=== PATIENT | male | born 1980 | race Caucasian/White ===

== ENCOUNTER 2023-10-20 16:15 | Observation (INO) | payer OTHER ==
--- NOTE | 2023-10-20 16:37 | ED ---
Chest Pain HPI - General Source: patient, RN notes reviewed <Mariia Rivers - Last Filed: 10/20/23 16:36> - General Source: patient, RN notes reviewed, old records reviewed <Adonis Ayala - Last Filed: 10/20/23 19:31> - General Chief Complaint: Chest Pain Stated Complaint: SOB, Chest Discomfort Time Seen by Provider: 10/20/23 16:36 - History of Present Illness Initial Comments: Patient is a 43-year-old male presented to ER with chief complaint of chest pain. Patient is a resident at [place]. Patient states he was sitting listening to a speaker when he started to have chest pain which radiated into his cheek and left arm. Denies any known cardiac history. Pain has now since resolved. (Mariia Rivers) Patient is a 43-year-old male sent from [place] for chest pain. Is here for alcohol abuse. Last drink was last week. Has a history of anxiety and tho ught that maybe this was the cause of his chest pain however he states it was different as he states that was left-sided with radiation into the left cheek and left arm. Resolved prior to arrival. Has no current pain. Lasted may be 5 to 15 minutes. Unknown for sure. Denies any shortness of breath. Denies any diaphoresis or nausea. Denies any other acute complaints. No cardiac history. No history of cocaine abuse. Presents for further evaluation at this time. Originally seen as a quick note. I evaluated him when he was placed in a hallway bed. (Adonis Ayala) - Related Data Allergies Allergy/AdvReac Type Severity Reaction Status Date / Time No Known Allergies Allergy Verified 10/20/23 16:41 Review of Systems ROS Other: All systems not noted in ROS Statement are negative. <Mariia Rivers - Last Filed: 10/20/23 16:36> ROS Other: All systems not noted in ROS Statement are negative. <Adonis Ayala - Last Filed: 10/20/23 19:31> ROS Statement: Those systems with pertinent positive or pertinent negative responses have been documented in the HPI. Review of Systems: CONST: Denies fever EYES: Denies blurry vision ENT: Denies nasal congestion C/V: Endorses no current chest pain RESP: Denies shortness of breath GI: Denies abdominal pain : Denies dysuria SKIN: Denies rash. MSK: Denies joint pain. NEURO: Denies headache (Adonis Ayala) EKG Findings - EKG Comments: EKG Findings:: 12-lead Electrocardiogram Interpretation Note. EKG was reviewed and interpreted by myself. 12-lead ECG performed at 1645 is interpreted by me as revealing normal sinus rhythm at a rate of 64 beats per minute. [place] is normal. AR interval 125 ms, QRS duration is 114 ms, QTc is 454 ms.. There were no ST or T wave abnormalities to suggest myocardial ischemia or injury. R wave progression across the precordium was satisfactory. By my interpretation this EKG is non-diagnostic for acute ischemia. - EKG Results: EKG: interpreted by ERMD <Adonis Ayala - Last Filed: 10/20/23 19:31> General Exam <Mariia Rivers - Last Filed: 10/20/23 16:36> <Adonis Ayala - Last Filed: 10/20/23 19:31> - General Exam Comments Initial Comments: Visual Physical Exam Vital signs reviewed General: Well-appearing, nontoxic, no acute distress. Head: Normocephalic, atraumatic Eyes: PERRLA, EOMI ENT: Airway patent Chest: Nonlabored breathing Skin: No visual rash, normal skin tone Neuro: Alert and oriented 3 Musculoskeletal: No gross abnormalities (Mariia Rivers) General: Appears in no acute distress. HEAD: Normal with no signs of head trauma. EYES: PERRLA, EOMI, conjunctiva normal, no discharge. ENT: Hearing grossly intact, normal oropharynx. RESPIRATORY: Clear breath sounds bilaterally. No wheezes, rales, or rhonchi. C/V: Regular rate and rhythm. S1 and S2 auscultated, no edema, peripheral pulses 2+ and intact throughout ABD: Abd is soft, nontender, nondistended EXT: Normal range of motion, no obvious deformity SKIN: No rashes or lesions observed on exposed skin. NEURO: Alert and oriented x 4. (Adonis Ayala) Course Vital Signs 10/20/23 10/20/23 16:36 18:49 Temperature 98.1 F Pulse Rate 86 64 Respiratory 20 18 Rate Blood Pressure 109/78 131/86 O2 Sat by Pulse 100 96 Oximetry Chest Pain MDM <Mariia Rivers - Last Filed: 10/20/23 16:36> <Adonis Ayala - Last Filed: 10/20/23 19:31> - [facility] I performed the quick note portion of this chart. Electronically signed by Mariia Rivers PA-C (Mariia Rivers) Was pt. sent in by a medical professional or institution (DAVID Kathleen, SPRAY APPLICATOR, urgent care, hospital, or jail...) When possible be specific @ -No Did you speak to anyone other than the patient for history (EMS, parent, family, police, friend...)? What history was obtained from this source @ -No Did you review nursing and triage notes (agree or disagree)? Why? @ -I reviewed and agree with nursing and triage notes Were old charts reviewed (outside hosp., previous admission, EMS record, old EKG, old radiological studies, urgent care reports/EKG's, jail records)? Report findings @ -No old charts were reviewed Differential Diagnosis (chest pain, altered mental status, abdominal pain women, abdominal pain men, vaginal bleeding, weakness, fever, dyspnea, syncope, headache, dizziness, GI bleed, back pain, seizure, CVA, palpatations, mental health, musculoskeletal)? @ -Differential Chest Pain: Stable Angina, Unstable Angina, STEMI, NSTEMI Aortic Dissection, Pneumothorax, Musculoskeletal, Esophageal Spasm GERD, Cholecystitis, Pancreatitis, Zoster, this is not meant to be an all-inclusive list. EKG interpreted by me (3pts min.). @ -As above X-rays interpreted by me (1pt min.). @ -Chest x-ray reveals no obvious acute cardiopulmonary process CT interpreted by me (1pt min.). @ -None done U/S interpreted by me (1pt. min.). @ -None done What testing was considered but not performed or refused? (CT, X-rays, U/S, labs)? Why? @ -None What meds were considered but not given or refused? Why? @ -None Did you discuss the management of the patient with other professionals (professionals i.e. DAVID Kathleen, SPRAY APPLICATOR, lab, RT, psych nurse, psychologist social, resolution agent, teacher, community service patrol officer, onsite case manager)? Give summary @ -I spoke with Dr. Conroy who accepted the admission. Was smoking cessation discussed for >3mins.? @ -No Was critical care preformed (if so, how long)? @ -No Were there social determinants of health that impacted care today? How? (Homelessness, low income, unemployed, alcoholism, drug addiction, transportation, low edu. Level, literacy, decrease access to med. care, shelter, rehab)? @ -No Was there de-escalation of care discussed even if they declined (Discuss DNR or withdrawal of care, Hospice)? DNR status @ -No What co-morbidities impacted this encounter? (DM, HTN, Smoking, COPD, CAD, Cancer, CVA, ARF, Chemo, Hep., AIDS, mental health diagnosis, sleep apnea, morbid obesity)? @ -None Was patient admitted / discharged? Hospital course, mention meds given and route, prescriptions, significant lab abnormalities, going to OR and other pertinent info. @ -Based on the patient's presentation and physical exam, presents with somewhat typical sounding chest pain that resolved prior to arrival. Has no other acute complaints at this time. Does have a family history of cardiac disease. Vital signs are within acceptable limits. EKG shows no signs of acute ischemia. Chest x-ray unremarkable. Labs remarkable for an undetectable troponin. I discussed results with the patient. I did offer him observation admission and he accepted. Patient will be admitted to observation at this time. Cardiology consulted. I spoke with Dr. Conroy of [facility] who accepted the admission. Patient's heart score is moderate at 4. Patient was in agreement this plan. Undiagnosed new problem with uncertain prognosis? @ -No Drug Therapy requiring intensive monitoring for toxicity (Heparin, Nitro, Insulin, Cardizem)? @ -No Were any procedures done? @ -No Diagnosis/symptom? @ -Chest pain Acute, or Chronic, or Acute on Chronic? @ -Acute Uncomplicated (without systemic symptoms) or Complicated (systemic symptoms)? @ -Complicated Side effects of treatment? @ -No Exacerbation, Progression, or Severe Exacerbation? @ -No Poses a threat to life or bodily function? How? (Chest pain, [place], [place], pneumonia, PE, COPD, DKA, ARF, appy, cholecystitis, CVA, Diverticulitis, Homicidal, Suicidal, threat to staff... and all critical care pts) @ -Yes (Adonis Ayala) Disposition <Mariia Rivers - Last Filed: 10/20/23 16:36> Time of Disposition: 18:28 <Adonis Ayala - Last Filed: 10/20/23 19:31> Clinical Impression: Chest pain Disposition: ADMITTED IP TO THIS HOSP Condition: Stable Referrals: None,Stated [Primary Care Provider] - 1-2 days
[2023-10-20 17:07] LABS: HCT 47.4 % (39.0-53.0); HGB 16.2 gm/dL (13.0-17.5); INR 0.9 (<1.2); MCH 33.3 pg (25.0-35.0); MCHC 34.3 g/dL (31.0-37.0); MCV 97.2 fL (80.0-100.0); Mean Platelet Volume 7.3; Partial Thromboplastin Time 23.2 sec (22.0-30.0); Platelet Count 244 k/uL (150-450); Prothrombin Time 10.2 sec (10.0-12.5); RBC 4.88 m/uL (4.30-5.90); RDW 12.6 % (11.5-15.5); WBC 5.7 k/uL (3.8-10.6)
[2023-10-20 17:15] LABS: ALT 49 U/L (4-49); AST 41 U/L (17-59); African American GFR (CKD) >90 (>60 ml/min/1.73 sqM); Alkaline Phosphatase 59 U/L (38-126); Anion Gap 3 mmol/L; Blood Urea Nitrogen 16 mg/dL (9-20); Carbon Dioxide 28 mmol/L (22-30); Chloride 109 mmol/L (98-107); Glucose 97 mg/dL (74-99); Non-African American GFR(CKD) >90 (>60 ml/min/1.73 sqM); Potassium 4.1 mmol/L (3.5-5.1); Sodium 140 mmol/L (137-145); Total Bilirubin 0.5 mg/dL (0.2-1.3); Total Protein 7.1 g/dL (6.3-8.2)
--- NOTE | 2023-10-20 17:44 | XR ---
EXAMINATION TYPE: XR chest 2V DATE OF EXAM: 10/20/2023 5:14 PM CLINICAL INDICATION:Male, 43 years old with history of chest pain; COMPARISON: Chest radiographs from 10/20/2023. TECHNIQUE: XR chest 2V Frontal and lateral views of the chest. FINDINGS: Lungs/Pleura: There is no evidence of pleural effusion, focal consolidation, or pneumothorax. Pulmonary vascularity: Unremarkable. Heart/mediastinum: Cardiomediastinal silhouette is unremarkable. Musculoskeletal: No acute osseous pathology. IMPRESSION: No acute cardiopulmonary disease/process.
[2023-10-20] MEDS ORDERED: ONDANSETRON 4 MG/2 ML VIAL IVP PRN (18:28)
[2023-10-20] MEDS ORDERED: NALOXONE 0.4 MG/ML 1 ML VIAL IV PRN (18:28)
[2023-10-20] MEDS: ASPIRIN 81 MG PO STA (18:50)
[2023-10-20 21:24] VITALS: RESP 16
[2023-10-20] MEDS: HEPARIN SODIUM,PORCINE 5,000 UNIT/ML 1 ML VIAL SQ SCH (22:35)
[2023-10-21] MEDS ORDERED: ALBUTEROL NEBULIZED 2.5 MG/3 ML INHALATION PRN (04:30)
--- NOTE | 2023-10-21 04:36 | P.HPIM ---
History of Present Illness H&P Date: 10/20/23 Chief Complaint: Chest pain 43-year-old male with anxiety and alcohol abuse Patient coming in from [place] due to an episode of chest pain he describes sudden onset across his chest chest heaviness rated 8 out of 10 in severity radiating to the left arm and to his jaw lasted about 20 seconds he was doing nothing when it happened not precipitated by any activity reports that it was associated with heavy breathing some profuse sweating and dizziness denies any nausea vomiting or palpitations he reports that he had experienced something similar years and years ago where he had a stress test done that was positive he was supposed to do further testing but then he was lost to follow-up. He denies any recent illnesses respiratory illness denies any nausea vomiting denies any coughing denies any fevers or chills denies any changes in bowel or urinary habits denies any abdominal pain Patient does admit to alcohol abuse his last drink was over a week ago he has been at [place] for rehab He does admit to history of anxiety but claims to be very calm at this time He does admit to heavy smoking denies any illicit drugs. He also admits to heavy alcohol dependence Denies any recent travel or hospital stay denies any history of blood clots review of systems Pertinent positives as noted in HPI. All other systems were reviewed and are negative on exam Constitutional: No acute distress, conversant, pleasant Eyes: Anicteric sclerae, moist conjunctiva, Pupils equal round reactive to light ENMT: NC/AT Oropharynx clear, no erythema, or exudates Neck: Supple, no masses, or JVD No carotid bruits No thyromegaly Lungs: Clear to auscultation Clear to percussion Normal respiratory effort, no accessory muscle use Cardiovascular: Heart regular in rate and rhythm, No murmurs, gallops, or rubs No peripheral edema Abdominal: Soft Nontender, no guarding, rebound or rigidity Abdomen moving with respiration Normoactive bowel sounds No hepatomegaly, No splenomegaly Extremities: No digital cyanosis No clubbing Pedal pulses intact and symmetrical Radial pulses intact and symmetrical No calf tenderness Psychiatric: Alert and oriented to person, place and time Appropriate affect fair judgement Neuro Muscles Strength 5/5 in all 4 extremities Sensation to light touch grossly present throughout Cranial nerves II-XII grossly intact Lymphatics: no palpable cervical or supraclavicular lymph nodes Past Medical History Past Medical History: No Reported History History of Any Multi-Drug Resistant Organisms: None Reported Past Psychological History: No Psychological Hx Reported Smoking Status: Current some day smoker Past Alcohol Use History: Abuse Past Drug Use History: None Reported Medications and Allergies Home Medications Medication Instructions Recorded Confirmed Type ARIPiprazole [Abilify] 10 mg PO DAILY 10/20/23 10/20/23 History Albuterol Inhaler [Ventolin Hfa 2 puff INHALATION RT-QID PRN 10/20/23 10/20/23 History Inhaler] Aspirin EC [Ecotrin] 650 mg PO Q4H PRN 10/20/23 10/20/23 History Calcium Phos/D3/Magnesium/Zinc 1 tab PO TID PRN 10/20/23 10/20/23 History [Lwbmonm-Hot-Qrdh-Vitamin D3] Cetirizine HCl [Zyrtec] 10 mg PO DAILY PRN 10/20/23 10/20/23 History FLUoxetine HCL 40 mg PO DAILY 10/20/23 10/20/23 History Thiamine [Vitamin B-1] 100 mg PO DAILY 10/20/23 10/20/23 History busPIRone HCL [Buspar] 30 mg PO BID 10/20/23 10/20/23 History Allergies Allergy/AdvReac Type Severity Reaction Status Date / Time No Known Allergies Allergy Verified 10/20/23 19:32 Physical Exam Vitals: Vital Signs Temp Pulse Pulse Resp BP BP Pulse Ox 10/20/23 21:52 97.5 F L 66 16 112/70 96 10/20/23 21:01 84 16 123/81 95 10/20/23 18:49 64 18 131/86 96 10/20/23 16:36 98.1 F 86 20 109/78 100 Intake and Output 10/20/23 10/20/23 10/20/23 06:59 14:59 22:59 Other: Weight 102.058 kg Results CBC & Chem 7: 10/20/23 16:43 10/20/23 16:43 Labs: Abnormal Lab Results - Last 24 Hours (Table) 10/20/23 Range/Units 16:43 Chloride 109 H (98-107) mmol/L Thrombosis Risk Factor Assmnt - Choose All That Apply Each Factor Represents 1 point: Age 41-60 years, Obesity (BMI >25) Thrombosis Risk Factor Assessment Total Risk Factor Score: 2 Thrombosis Risk Factor Assessment Level: Low Risk Assessment and Plan Assessment: 43-year-old male with anxiety alcohol abuse coming from [place] re[facility] for sudden onset chest pain that lasted 20 seconds radiating to his jaw and left arm I discussed case with ED doctor and accepted the admission for atypical chest pain to rule out acute coronary syndrome with anticipated length of stay less than 2 midnights Atypical chest pain Rule out acute coronary syndrome Troponins negative continue to trend Cardiac monitoring Monitor vital signs Continue with aspirin p.o. 81 mg daily Check lipid panel in the morning Cardiology consult EKG is normal sinus rhythm no acute ST changes Gentle IV fluid hydration normal saline 75 cc/h Alcohol abuse patient quit over a week ago Discharge back [place] re[facility] was cleared by cardiology Thiamine p.o. daily Monitor for alcohol withdrawal Anxiety Continue with Prozac and BuSpar Continue with Abilify these are all home medications Full code DVT prophylaxis heparin subcu 3 times daily Blood work overall unremarkable white count 8.7 hemoglobin 16 Sodium 140 potassium 4.1 BUN 16 creatinine 0.7 unremarkable Chest x-ray showed no acute cardiopulmonary process
[2023-10-21] MEDS: SODIUM CHLORIDE 0.9% 1,000 ML IV SCH (05:18)
[2023-10-21 07:57] VITALS: BP 118/75; PULSE 70; TEMP 97.8
[2023-10-21 09:59] LABS: Basophils # (A) 0.03 X 10*3/uL (0.00-0.10); Basophils % (A) 0.6 %; Eosinophils # (A) 0.23 X 10*3/uL (0.04-0.35); Eosinophils % (A) 4.9 %; HCT 46.6 % (39.6-50.0); HGB 15.7 g/dL (13.0-17.0); Lymphocytes # (A) 1.91 X 10*3/uL (0.90-5.00); Lymphocytes % (A) 40.8 %; MCH 32.2 pg (27.0-32.0); MCHC 33.7 g/dL (32.0-37.0); MCV 95.5 FL (80.0-97.0); Mean Platelet Volume 9.5 FL (9.5-12.2); Monocytes # (A) 0.35 X 10*3/uL (0.20-1.00); Monocytes % (A) 7.5 %; NRBC Per 100 WBC 0 X 10*3/uL (0.00-0.01); Neutrophils # (A) 2.15 X 10*3/uL (1.80-7.70); Platelet Count 253 X 10*3/uL (140-440); RBC 4.88 X 10*6/uL (4.40-5.60); RDW 12.7 % (11.5-14.5); WBC 4.68 X 10*3/uL (4.50-10.00)
[2023-10-21 10:25] LABS: Blood Urea Nitrogen 11.6 mg/dL (9.0-27.0); Calcium 8.7 mg/dL (8.7-10.3); Carbon Dioxide 24.5 mmol/L (21.6-31.8); Chloride 109 mmol/L (96-109); Chol/HDL Ratio 3.23 Ratio; Glucose 92 mg/dL (70-110); LDL Cholesterol,Calculated 90.8 mg/dL (0.0-131.0); Potassium 4.4 mmol/L (3.5-5.5); Sodium 144 mmol/L (135-145)
[2023-10-21] MEDS: THIAMINE 100 MG TAB PO SCH (11:18)
[2023-10-21] MEDS: ASPIRIN 81 MG PO SCH (11:18)
[2023-10-21] MEDS: ARIPiprazole 10 MG TAB PO SCH (11:18)
[2023-10-21] MEDS: busPIRone HCl 10 MG TAB PO SCH (11:18)
[2023-10-21] MEDS: FLUoxetine HCL 20 MG CAP PO SCH (11:18)
--- NOTE | 2023-10-21 11:50 | P.DS ---
Providers Date of admission: 10/20/23 18:31 Expected date of discharge: 10/21/23 Attending physician: Faisal Conroy MD Consults: 10/20/23 18:28 Consult Physician Routine Consulting Provider: [facility] Consult Reason/Comments: chest pain Do you want consulting provider notified?: Yes Primary care physician: Stated None Hospital Course: Discharge Diagnosis: Chest pain, ACS ruled out Alcohol dependence Anxiety/depression Hospital Course: 43-year-old male with history of alcohol dependence, depression/anxiety presenting with chest pain. Patient is coming from [place]. Vital signs have been within normal limits. Laboratory workup unremarkable. Troponin negative x 3. Cardiology assessed patient. EKG showed normal sinus rhythm. Chest x-ray no acute process. D-dimer negative. Patient being discharged back to [facility]. Patient asymptomatic at the time of discharge. Patient seen and examined at bedside. Vital signs reviewed and stable. General: Nontoxic, no distress, appears at stated age Derm: Warm, dry Head: Atraumatic, normocephalic, symmetric Eyes: EOMI, no lid lag, anicteric sclera Mouth: No lip lesion, mucus membranes moist Cardiovascular: S1S2 reg, no murmur Lungs: CTA bilateral, no rhonchi, no rales, no accessory muscle use Abdominal: Soft, nontender to palpation, no guarding, no appreciable organomegaly Ext: No gross muscle atrophy, no edema, no contractures Neuro: CN II-XI grossly intact, no focal neuro deficits Psych: Alert, oriented, appropriate affect A total of 33 minutes of time were spent preparing this complex discharge summary. Patient was discharged on 10/21/23 at 1130. Patient Condition at Discharge: Stable Plan - Discharge Summary New Discharge Prescriptions: Continue Calcium Phos/D3/Magnesium/Zinc [Xdsrxin-Zug-Pmew-Vitamin D3] 1 tab PO TID PRN PRN Reason: CRAMPS Albuterol Inhaler [Ventolin Hfa Inhaler] 2 puff INHALATION RT-QID PRN PRN Reason: Shortness Of Breath Cetirizine HCl [Zyrtec] 10 mg PO DAILY PRN PRN Reason: Allergy Symptoms Thiamine [Vitamin B-1] 100 mg PO DAILY Aspirin EC [Ecotrin] 650 mg PO Q4H PRN PRN Reason: Pain busPIRone HCL [Buspar] 30 mg PO BID FLUoxetine HCL 40 mg PO DAILY ARIPiprazole [Abilify] 10 mg PO DAILY Discharge Medication List ARIPiprazole [Abilify] 10 mg PO DAILY 10/20/23 [History] Albuterol Inhaler [Ventolin Hfa Inhaler] 2 puff INHALATION RT-QID PRN 10/20/23 [History] Aspirin EC [Ecotrin] 650 mg PO Q4H PRN 10/20/23 [History] Calcium Phos/D3/Magnesium/Zinc [Tnfzvkd-Npj-Zbni-Vitamin D3] 1 tab PO TID PRN 10/20/23 [History] Cetirizine HCl [Zyrtec] 10 mg PO DAILY PRN 10/20/23 [History] FLUoxetine HCL 40 mg PO DAILY 10/20/23 [History] Thiamine [Vitamin B-1] 100 mg PO DAILY 10/20/23 [History] busPIRone HCL [Buspar] 30 mg PO BID 10/20/23 [History] Follow up Appointment(s)/Referral(s): None,Stated [Primary Care Provider] - 1-2 days Patient Instructions/Handouts: Noncardiac Chest Pain (DC), Alcohol Dependence (ED) Activity/Diet/Wound Care/Special Instructions: Please see PCP. Discharge Disposition: OTHER INSTITUTION NOT DEFINED
--- NOTE | 2023-10-21 15:23 | P.CRDCN ---
History of Present Illness Consult date: 10/21/23 Consult reason: chest pain History of present illness: The patient is a 43-year-old male who is currently admitted for intermittent chest pains. The patient is currently undergoing EtOH withdrawal at [facility]. The patient was sitting in an evening meeting when he developed chest discomfort that was sharp in nature radiating to his left jaw and left arm. DIAGNOSTICS: EKG shows sinus mechanism without ST or T wave abnormalities Chest x-ray shows no acute cardiopulmonary process Lab data: WBC 4.6, hemoglobin 15.7, Addison crit 46.6, platelet 253, D-dimer 0.55, sodium 144, potassium 4.4, BUN 11, creatinine 0.8, troponins negative x 3, AST 41, ALT 49, triglycerides 71, LDL 90, HDL 47 REVIEW OF SYSTEMS: No fever or chills. No cough or expectoration. No diaphoresis. Patient denies headache, dizziness, blurred vision, double vision. Patient denies any stomach discomfort. No nausea, vomiting. No hematochezia. No hematemesis. Denies any black stools or blood in his stools. Denies dysuria or hematuria. No muscle weakness or numbness. PHYSICAL EXAMINATION: This is a 43-year-old male in no apparent distress at the time of my examination. HEENT: Head is atraumatic, normocephalic. Pupils are equal, round. Sclerae anicteric. Conjunctivae are clear. Mucous membranes of the mouth are moist. Neck is supple. There is no jugular venous distention. No carotid bruit is heard. CHEST EXAMINATION: Lungs are clear to auscultation. No chest wall tenderness is noted on palpation or with deep breathing. HEART EXAMINATION: Heart regular rate and rhythm. S1, S2 heard. No murmurs, gallops or rub. ABDOMEN: Soft, nontender. Bowel sounds are heard. No organomegaly noted. EXTREMITIES: 2+ peripheral pulses with no evidence of peripheral edema and no calf tenderness noted. NEUROLOGIC EXAMINATION: Patient is awake, alert and oriented x3. FINAL ASSESSMENT AND PLAN: Chest discomfort EtOH withdrawal Anxiety disorder PLAN: Patient may be discharged back to [place] [facility] Outpatient follow-up I am dictating on behalf of Dr David Garduno's history/physical and assessment/plan. Past Medical History Past Medical History: No Reported History History of Any Multi-Drug Resistant Organisms: None Reported Past Psychological History: No Psychological Hx Reported Smoking Status: Current some day smoker Past Alcohol Use History: Abuse Past Drug Use History: None Reported Medications and Allergies Home Medications Medication Instructions Recorded Confirmed Type ARIPiprazole [Abilify] 10 mg PO DAILY 10/20/23 10/20/23 History Albuterol Inhaler [Ventolin Hfa 2 puff INHALATION RT-QID PRN 10/20/23 10/20/23 History Inhaler] Aspirin EC [Ecotrin] 650 mg PO Q4H PRN 10/20/23 10/20/23 History Calcium Phos/D3/Magnesium/Zinc 1 tab PO TID PRN 10/20/23 10/20/23 History [Ekouxuz-Bmb-Ulrj-Vitamin D3] Cetirizine HCl [Zyrtec] 10 mg PO DAILY PRN 10/20/23 10/20/23 History FLUoxetine HCL 40 mg PO DAILY 10/20/23 10/20/23 History Thiamine [Vitamin B-1] 100 mg PO DAILY 10/20/23 10/20/23 History busPIRone HCL [Buspar] 30 mg PO BID 10/20/23 10/20/23 History Allergies Allergy/AdvReac Type Severity Reaction Status Date / Time No Known Allergies Allergy Verified 10/20/23 19:32 Physical Exam Vitals: Vital Signs Temp Pulse Pulse Resp BP BP Pulse Ox 10/21/23 07:15 97.8 F 70 16 118/75 98 10/21/23 02:07 97.7 F 62 16 118/69 96 10/20/23 21:52 97.5 F L 66 16 112/70 96 10/20/23 21:01 84 16 123/81 95 10/20/23 18:49 64 18 131/86 96 10/20/23 16:36 98.1 F 86 20 109/78 100 Intake and Output 10/21/23 10/21/23 10/21/23 06:59 14:59 22:59 Intake Total 250 Balance 250 Intake: Oral 250 Other: # Voids 1 Results 10/21/23 05:51 10/21/23 05:51 Cardiac Enzymes 10/20/23 10/20/23 10/20/23 Range/Units 16:43 16:43 20:48 AST 41 (17-59) U/L Troponin I <0.012 <0.012 (0.000-0.034) ng/mL 10/21/23 Range/Units 00:06 AST (17-59) U/L Troponin I <0.012 (0.000-0.034) ng/mL Coagulation 10/20/23 Range/Units 16:43 PT 10.2 (10.0-12.5) sec APTT 23.2 (22.0-30.0) sec Lipids 10/21/23 Range/Units 05:51 Triglycerides 71.00 (0.00-149.00) mg/dL Cholesterol 152.00 (0.00-200.00) mg/dL HDL Cholesterol 47.00 (40.00-60.00) mg/dL Cholesterol/HDL Ratio 3.23 Ratio CBC 10/20/23 10/21/23 Range/Units 16:43 05:51 WBC 5.7 4.68 (3.8-10.6) k/uL RBC 4.88 4.88 (4.30-5.90) m/uL Hgb 16.2 15.7 (13.0-17.5) gm/dL Hct 47.4 46.6 (39.0-53.0) % Plt Count 244 253 (150-450) k/uL Comprehensive Metabolic Panel 10/20/23 10/21/23 Range/Units 16:43 05:51 Sodium 140 144 (137-145) mmol/L Potassium 4.1 4.4 (3.5-5.1) mmol/L Chloride 109 H 109 (98-107) mmol/L Carbon Dioxide 28 24.5 (22-30) mmol/L BUN 16 11.6 (9-20) mg/dL Creatinine 0.74 0.8 (0.66-1.25) mg/dL Glucose 97 92 (74-99) mg/dL Calcium 9.0 8.7 (8.4-10.2) mg/dL AST 41 (17-59) U/L ALT 49 (4-49) U/L Alkaline Phosphatase 59 (38-126) U/L Total Protein 7.1 (6.3-8.2) g/dL Albumin 4.0 (3.5-5.0) g/dL Current Medications Generic Name Dose Route Start Last Admin Trade Name Freq PRN Reason Stop Dose Admin Albuterol Sulfate 2.5 mg 02/24/24 04:30 Albuterol Nebulized 2.5 Mg/3 Ml INHALATION RT-QID PRN Shortness Of Breath Aripiprazole 10 mg 10/21/23 09:00 10/21/23 11:18 Aripiprazole 10 Mg Tab PO 10 mg DAILY HELEN Administration Aspirin 81 mg 10/21/23 09:00 10/21/23 11:18 Aspirin 81 Mg PO 81 mg DAILY HELEN Administration Buspirone HCl 30 mg 10/21/23 09:00 10/21/23 11:18 Buspirone Hcl 10 Mg Tab PO 30 mg BID HELEN Administration Fluoxetine HCl 40 mg 10/21/23 09:00 10/21/23 11:18 Fluoxetine Hcl 20 Mg Cap PO 40 mg DAILY HELEN Administration Heparin Sodium (Porcine) 5,000 unit 10/21/23 00:00 10/21/23 15:05 Heparin Sodium,Porcine 5,000 Unit/Ml 1 Ml Vial SQ Not Given Q8HR HELEN Sodium Chloride 1,000 mls @ 75 mls/hr 10/21/23 04:45 10/21/23 05:18 Saline 0.9% IV 75 mls/hr .[id number] HELEN Administration Naloxone HCl 0.2 mg 10/20/23 18:28 Naloxone 0.4 Mg/Ml 1 Ml Vial IV Q2M PRN Opioid Reversal Ondansetron HCl 4 mg 10/20/23 18:28 Ondansetron 4 Mg/2 Ml Vial IVP Q8HR PRN Nausea And Vomiting Thiamine HCl 100 mg 10/21/23 09:00 10/21/23 11:18 Thiamine 100 Mg Tab PO 100 mg DAILY HELEN Administration Intake and Output 10/21/23 10/21/23 10/21/23 06:59 14:59 22:59 Intake Total 250 Balance 250 Intake: Oral 250 Other: # Voids 1 10/21/23 05:51 10/21/23 05:51
== END 2023-10-21 16:15 | disposition home or self-care (01) ==
LOC: EC 16:15 → 6NMEDSUR 18:31
PROVIDERS: ADMIT Internal Medicine; ATTEND Internal Medicine
DX: R07.89 Other chest pain (principal); F10.239 Alcohol dependence with withdrawal, unspecified; F41.9 Anxiety disorder, unspecified; R68.84 Jaw pain; M79.602 Pain in left arm; R61 Generalized hyperhidrosis; R42 Dizziness and giddiness; F17.200 Nicotine dependence, unspecified, uncomplicated; E66.9 Obesity, unspecified; Z68.31 Body mass index [BMI] 31.0-31.9, adult; Z79.82 Long term (current) use of aspirin; Z79.899 Other long term (current) drug therapy; Z82.49 Family history of ischemic heart disease and other diseases of the circulatory system
CPT/HCPCS: 96372; 99285; 36415; 93005; 85379; 80061; 80053; 80048; 84484 ×2; 85025; 85027; 85610; 85730; 71046; G0378 ×2; J1644

== ENCOUNTER 2023-11-03 14:07 | Emergency (ER) | payer OTHER ==
[2023-11-03 14:35] VITALS: TEMP 98.2
[2023-11-03] MEDS ORDERED: methylPREDNISolone SOD SUCCI 125 MG/2 ML VIAL IM ONE (14:59)
--- NOTE | 2023-11-03 15:29 | ED ---
SOB HPI - General Chief Complaint: Shortness of Breath Stated Complaint: SOB Time Seen by Provider: 11/03/23 14:52 Source: patient, RN notes reviewed Mode of arrival: ambulatory Limitations: no limitations - History of Present Illness Initial Comments: This is a 43 year old male who presents to the emergency department for shortness of breath. States that he has had coughing and shortness of breath for 1-2 days. Yesterday he started to cough up spots of blood and clots, however he has not had any blood in his sputum today. Not taking any blood thinners. He does have asthma but only has one inhaler that is not usually effective. States that he initially had a fever that has since resolved. He has however started to develop some chest pain as well. The coughing is also very bothersome, and states that he is coughing so much that he ends up vomiting. MD Complaint: shortness of breath, cough - Related Data Home Medications Medication Instructions Recorded Confirmed ARIPiprazole [Abilify] 10 mg PO DAILY 10/20/23 10/20/23 Albuterol Inhaler [Ventolin Hfa 2 puff INHALATION RT-QID PRN 10/20/23 10/20/23 Inhaler] Aspirin EC [Ecotrin] 650 mg PO Q4H PRN 10/20/23 10/20/23 Calcium Phos/D3/Magnesium/Zinc 1 tab PO TID PRN 10/20/23 10/20/23 [Lquhhze-Arc-Rueh-Vitamin D3] Cetirizine HCl [Zyrtec] 10 mg PO DAILY PRN 10/20/23 10/20/23 FLUoxetine HCL 40 mg PO DAILY 10/20/23 10/20/23 Thiamine [Vitamin B-1] 100 mg PO DAILY 10/20/23 10/20/23 busPIRone HCL [Buspar] 30 mg PO BID 10/20/23 10/20/23 Previous Rx's Medication Instructions Recorded Amoxic-Pot Clav 875-125Mg 1 tab PO Q12HR 7 Days #14 tab 11/03/23 [Augmentin 875-125] Azithromycin [Zithromax] 250 mg PO DIRECTED 5 Days #6 tab 11/03/23 Ondansetron Odt [Zofran Odt] 4 mg PO Q8HR PRN #10 tab 03/08/24 predniSONE 50 mg PO DAILY 5 Days #5 tab 11/03/23 Allergies Allergy/AdvReac Type Severity Reaction Status Date / Time No Known Allergies Allergy Verified 10/20/23 19:32 Review of Systems ROS Statement: Those systems with pertinent positive or pertinent negative responses have been documented in the HPI. ROS Other: All systems not noted in ROS Statement are negative. Past Medical History Past Medical History: Asthma History of Any Multi-Drug Resistant Organisms: None Reported Past Surgical History: No Surgical Hx Reported Past Psychological History: Anxiety, Panic Disorder Smoking Status: Current some day smoker Past Alcohol Use History: Abuse Past Drug Use History: None Reported General Exam Limitations: no limitations General appearance: alert, in no apparent distress Head exam: Present: atraumatic, normocephalic, normal inspection Respiratory exam: Present: wheezes, decreased breath sounds, prolonged expiratory Cardiovascular Exam: Present: regular rate, normal rhythm, normal heart sounds. Absent: systolic murmur, diastolic murmur, rubs, gallop, clicks Neurological exam: Present: alert, oriented X3, CN II-XII intact Psychiatric exam: Present: normal affect, normal mood Skin exam: Present: warm, dry, intact, normal color. Absent: rash Course Vital Signs 11/03/23 11/03/23 11/03/23 14:26 17:09 17:17 Temperature 98.2 F Pulse Rate 99 85 87 Respiratory 24 Rate Blood Pressure 108/73 O2 Sat by Pulse 94 L Oximetry 11/03/23 11/03/23 11/03/23 17:47 17:57 18:54 Temperature Pulse Rate 104 H 102 H 62 Respiratory 16 Rate Blood Pressure 107/61 O2 Sat by Pulse 96 Oximetry Medical Decision Making - Medical Decision Making This is a 43-year-old male who presents to the emergency department for coughing and shortness of breath. Was pt. sent in by a medical professional or institution? @ -No Did you speak to anyone other than the patient for history? @ -No Did you review nursing and triage notes? @ -Yes, and I agree, it is accurate with regards to the patient's symptoms. Were old charts reviewed? @ -No Differential Diagnosis? @ -Differential Dyspnea: Coronary syndrome, arrhythmia, tamponade, asthma, COPD, pulmonary embolism, pneumonia, pneumothorax, pulmonary effusion, anaphylaxis, diabetic ketoacidosis, flailed chest, pulmonary contusion, diaphragmatic rupture, anemia, neuromuscular, this is not meant to be an all-inclusive list. EKG interpreted by me (3pts min.)? @ -EKG interpreted by me demonstrating the following: Sinus rhythm. Ventricular rate 86 bpm, MD interval 123 ms, QRS duration 105 ms, QTc 423 ms. X-rays interpreted by me (1pt min.)? @ -Chest x-ray obtained. My interpretation identifies central bilateral opacities. CT interpreted by me (1pt min.)? @ -Not obtained U/S interpreted by me (1pt. min.)? @ -Not obtained What testing was considered but not performed? (CT, X-rays, U/S, labs)? Why? @ -None What meds were considered but not given? Why? @ -None Did you discuss the management of the patient with other professionals? @ -No Did you reconcile home meds? @ -No Was smoking cessation discussed for >3mins.? @ -I discussed smoking cessation for greater than 3 minutes. The risk of smoking were discussed with the patient including but not limited to risks of cancer, stroke, coronary artery disease and COPD. Also discussed with patient were multiple methods of quitting smoking. Lastly we discussed the financial cost of smoking. Was critical care preformed (if so, how long)? @ -No Were there social determinants of health that impacted care today? How? (Homelessness, low income, unemployed, alcoholism, drug addiction, trans portation, low edu. Level, literacy, decrease access to med. care, custodial, rehab)? @ -No Was there de-escalation of care discussed even if they declined? (Discuss DNR or withdrawal of care, Hospice)? @ -No What co-morbidities impacted this encounter? (DM, HTN, Smoking, COPD, CAD, Cancer, CVA, Hep., AIDS, mental health diagnosis, sleep apnea, morbid obesity)? @ -Asthma, smoking Was patient admitted / discharged? @ -Discharged. Lab work unremarkable, including a negative D-dimer and troponin. COVID, influenza, and RSV testing were negative. Chest x-ray demonstrates new bilateral central edema and/or acute infiltrates. Patient given 2 DuoNeb breathing treatments with some improvement in symptoms. Symptoms likely related to pneumonia and asthma exacerbation. Patient comfortable with discharge home, and states that he does have a history of dealing with both of these at the same time. Given the smoking and asthma history, we will treat the patient with dual therapy. Prescription for azithromycin and Augmentin provided with dosing instructions reviewed. He was also given prescriptions for a 5-day course of prednisone and Zofran for any additional nausea. Otherwise advised to follow-up with his primary care provider. Undiagnosed new problem with uncertain prognosis? @ -None Drug Therapy requiring intensive monitoring for toxicity (Heparin, Nitro, Insulin, Cardizem)? @ -None Were any procedures done? @ -None Diagnosis/symptom? @ -Pneumonia, asthma exacerbation Acute, or Chronic, or Acute on Chronic? @ -Acute Uncomplicated (without systemic symptoms) or Complicated (systemic symptoms)? @ -Uncomplicated Side effects of treatment? @ -None Exacerbation, Progression, or Severe Exacerbation] @ -Not applicable regarding pneumonia, exacerbation of the asthma Poses a threat to life or bodily function? @ -Unlikely Return precautions reviewed in depth, the patient is instructed to return to the emergency department with any new, worsening, or concerning symptoms. Patient verbalized understanding. This case was discussed in detail with the attending ED physician, Dr. Silverman. Presentation, findings, and treatment plan discussed in detail as well. - Lab Data Result diagrams: 11/03/23 15:20 11/03/23 15:20 Lab Results 11/03/23 11/03/23 11/03/23 Range/Units 15:20 15:20 15:20 WBC 9.9 (3.8-10.6) k/uL RBC 4.34 (4.30-5.90) m/uL Hgb 14.5 (13.0-17.5) gm/dL Hct 41.9 (39.0-53.0) % MCV 96.6 (80.0-100.0) fL MCH 33.4 (25.0-35.0) pg MCHC 34.5 (31.0-37.0) g/dL RDW 12.5 (11.5-15.5) % Plt Count 220 (150-450) k/uL MPV 7.4 Neutrophils % 69 % Lymphocytes % 19 % Monocytes % 7 % Eosinophils % 4 % Basophils % 0 % Neutrophils # 6.9 (1.3-7.7) k/uL Lymphocytes # 1.9 (1.0-4.8) k/uL Monocytes # 0.6 (0-1.0) k/uL Eosinophils # 0.4 (0-0.7) k/uL Basophils # 0.0 (0-0.2) k/uL PT 10.2 (10.0-12.5) sec INR 0.9 (<1.2) APTT 25.3 (22.0-30.0) sec D-Dimer 0.51 (<0.60) mg/L FEU Sodium 138 (137-145) mmol/L Potassium 3.7 (3.5-5.1) mmol/L Chloride 106 (98-107) mmol/L Carbon Dioxide 22 (22-30) mmol/L Anion Gap 10 mmol/L BUN 17 (9-20) mg/dL Creatinine 0.73 (0.66-1.25) mg/dL Est GFR (CKD-EPI)AfAm >90 (>60 ml/min/1.73 sqM) Est GFR (CKD-EPI)NonAf >90 (>60 ml/min/1.73 sqM) Glucose 104 H (74-99) mg/dL Plasma Lactic Acid Doroteo (0.7-2.0) mmol/L Calcium 8.6 (8.4-10.2) mg/dL Total Bilirubin 0.5 (0.2-1.3) mg/dL AST 30 (17-59) U/L ALT 27 (4-49) U/L Alkaline Phosphatase 66 (38-126) U/L Troponin I (0.000-0.034) ng/mL NT-Pro-B Natriuret Pep pg/mL Total Protein 6.6 (6.3-8.2) g/dL Albumin 3.7 (3.5-5.0) g/dL Influenza Type A (PCR) (Not Detectd) Influenza Type B (PCR) (Not Detectd) RSV (PCR) (Not Detectd) SARS-CoV-2 (PCR) (Not Detectd) 11/03/23 11/03/23 11/03/23 Range/Units 15:20 15:20 15:20 WBC (3.8-10.6) k/uL RBC (4.30-5.90) m/uL Hgb (13.0-17.5) gm/dL Hct (39.0-53.0) % MCV (80.0-100.0) fL MCH (25.0-35.0) pg MCHC (31.0-37.0) g/dL RDW (11.5-15.5) % Plt Count (150-450) k/uL MPV Neutrophils % % Lymphocytes % % Monocytes % % Eosinophils % % Basophils % % Neutrophils # (1.3-7.7) k/uL Lymphocytes # (1.0-4.8) k/uL Monocytes # (0-1.0) k/uL Eosinophils # (0-0.7) k/uL Basophils # (0-0.2) k/uL PT (10.0-12.5) sec INR (<1.2) APTT (22.0-30.0) sec D-Dimer (<0.60) mg/L FEU Sodium (137-145) mmol/L Potassium (3.5-5.1) mmol/L Chloride (98-107) mmol/L Carbon Dioxide (22-30) mmol/L Anion Gap mmol/L BUN (9-20) mg/dL Creatinine (0.66-1.25) mg/dL Est GFR (CKD-EPI)AfAm (>60 ml/min/1.73 sqM) Est GFR (CKD-EPI)NonAf (>60 ml/min/1.73 sqM) Glucose (74-99) mg/dL Plasma Lactic Acid Doroteo 0.9 (0.7-2.0) mmol/L Calcium (8.4-10.2) mg/dL Total Bilirubin (0.2-1.3) mg/dL AST (17-59) U/L ALT (4-49) U/L Alkaline Phosphatase (38-126) U/L Troponin I <0.012 (0.000-0.034) ng/mL NT-Pro-B Natriuret Pep pg/mL Total Protein (6.3-8.2) g/dL Albumin (3.5-5.0) g/dL Influenza Type A (PCR) Not Detected (Not Detectd) Influenza Type B (PCR) Not Detected (Not Detectd) RSV (PCR) Not Detected (Not Detectd) SARS-CoV-2 (PCR) Not Detected (Not Detectd) 11/03/23 Range/Units 15:20 WBC (3.8-10.6) k/uL RBC (4.30-5.90) m/uL Hgb (13.0-17.5) gm/dL Hct (39.0-53.0) % MCV (80.0-100.0) fL MCH (25.0-35.0) pg MCHC (31.0-37.0) g/dL RDW (11.5-15.5) % Plt Count (150-450) k/uL MPV Neutrophils % % Lymphocytes % % Monocytes % % Eosinophils % % Basophils % % Neutrophils # (1.3-7.7) k/uL Lymphocytes # (1.0-4.8) k/uL Monocytes # (0-1.0) k/uL Eosinophils # (0-0.7) k/uL Basophils # (0-0.2) k/uL PT (10.0-12.5) sec INR (<1.2) APTT (22.0-30.0) sec D-Dimer (<0.60) mg/L FEU Sodium (137-145) mmol/L Potassium (3.5-5.1) mmol/L Chloride (98-107) mmol/L Carbon Dioxide (22-30) mmol/L Anion Gap mmol/L BUN (9-20) mg/dL Creatinine (0.66-1.25) mg/dL Est GFR (CKD-EPI)AfAm (>60 ml/min/1.73 sqM) Est GFR (CKD-EPI)NonAf (>60 ml/min/1.73 sqM) Glucose (74-99) mg/dL Plasma Lactic Acid Doroteo (0.7-2.0) mmol/L Calcium (8.4-10.2) mg/dL Total Bilirubin (0.2-1.3) mg/dL AST (17-59) U/L ALT (4-49) U/L Alkaline Phosphatase (38-126) U/L Troponin I (0.000-0.034) ng/mL NT-Pro-B Natriuret Pep 29 pg/mL Total Protein (6.3-8.2) g/dL Albumin (3.5-5.0) g/dL Influenza Type A (PCR) (Not Detectd) Influenza Type B (PCR) (Not Detectd) RSV (PCR) (Not Detectd) SARS-CoV-2 (PCR) (Not Detectd) - Radiology Data Radiology results: report reviewed, image reviewed Disposition Clinical Impression: Nicotine dependence, Pneumonia, Asthma exacerbation Disposition: HOME SELF-CARE Instructions (If sedation given, give patient instructions): Asthma (ED), Pneumonia (ED) Additional Instructions: Return to the emergency department with any new, worsening, or concerning symptoms. Take the azithromycin daily for 5 days. Take the Augmentin as prescribed for 7 days. Take the prednisone daily for 5 days. You can have the Zofran up to every 8 hours as needed for nausea and vomiting. Follow up with your primary care provider in 1-2 days. Prescriptions: Amoxic-Pot Clav 875-125Mg [Augmentin 875-125] 1 tab PO Q12HR 7 Days #14 tab predniSONE 50 mg PO DAILY 5 Days #5 tab Azithromycin [Zithromax] 250 mg PO DIRECTED 5 Days #6 tab Ondansetron Odt [Zofran Odt] 4 mg PO Q8HR PRN #10 tab PRN Reason: Nausea And Vomiting Is patient prescribed a controlled substance at d/c from ED?: No Referrals: None,Stated [Primary Care Provider] - 1-2 days Forms: Area PCPs
[2023-11-03 15:42] LABS: Basophils % (A) 0 %; Eosinophils # (A) 0.4 k/uL (0-0.7); Eosinophils % (A) 4 %; HCT 41.9 % (39.0-53.0); HGB 14.5 gm/dL (13.0-17.5); Lymphocytes # (A) 1.9 k/uL (1.0-4.8); Lymphocytes % (A) 19 %; MCH 33.4 pg (25.0-35.0); MCHC 34.5 g/dL (31.0-37.0); MCV 96.6 fL (80.0-100.0); Mean Platelet Volume 7.4; Monocytes # (A) 0.6 k/uL (0-1.0); Monocytes % (A) 7 %; Neutrophils # (A) 6.9 k/uL (1.3-7.7); Neutrophils % (A) 69 %; Platelet Count 220 k/uL (150-450); RBC 4.34 m/uL (4.30-5.90); RDW 12.5 % (11.5-15.5); WBC 9.9 k/uL (3.8-10.6)
[2023-11-03] MEDS: guaiFENesin-Coden 100-10MG/5ML 10 ML CUP PO STA (15:44)
[2023-11-03] MEDS: methylPREDNISolone SOD SUCCI 125 MG/2 ML VIAL IV STA (15:44)
[2023-11-03 15:58] LABS: INR 0.9 (<1.2); Partial Thromboplastin Time 25.3 sec (22.0-30.0); Prothrombin Time 10.2 sec (10.0-12.5)
--- NOTE | 2023-11-03 16:00 | XR ---
EXAMINATION TYPE: XR chest 2V DATE OF EXAM: 11/03/2023 COMPARISON: Chest x-ray October 20, 2023 HISTORY: Difficulty in breathing. TECHNIQUE: Frontal and lateral views of the chest are obtained. FINDINGS: There are central bilateral increased opacities. No pleural effusion or pneumothorax seen bilaterally. The cardiac silhouette size is stable and within normal limits. The osseous structures are intact. IMPRESSION: New bilateral central edema and/or acute infiltrates.
[2023-11-03 16:08] LABS: ALT 27 U/L (4-49); AST 30 U/L (17-59); African American GFR (CKD) >90 (>60 ml/min/1.73 sqM); Albumin 3.7 g/dL (3.5-5.0); Alkaline Phosphatase 66 U/L (38-126); Anion Gap 10 mmol/L; Blood Urea Nitrogen 17 mg/dL (9-20); Calcium 8.6 mg/dL (8.4-10.2); Carbon Dioxide 22 mmol/L (22-30); Chloride 106 mmol/L (98-107); Glucose 104 mg/dL (74-99); Non-African American GFR(CKD) >90 (>60 ml/min/1.73 sqM); Potassium 3.7 mmol/L (3.5-5.1); Sodium 138 mmol/L (137-145); Total Bilirubin 0.5 mg/dL (0.2-1.3); Total Protein 6.6 g/dL (6.3-8.2)
[2023-11-03] MEDS: ONDANSETRON 4 MG/2 ML VIAL IVP STA (16:18)
[2023-11-03] MEDS: IPRATROPIUM-ALBUTEROL 3 ML NEB INHALATION STA ×2 (17:09→17:47)
[2023-11-03] MEDS: BENZONATATE 100 MG CAP PO STA (18:47)
[2023-11-03 19:12] VITALS: BP 107/61; PULSE 62; RESP 16
== END 2023-11-03 18:56 | disposition home or self-care (01) ==
LOC: EC 14:07
DX: J18.9 Pneumonia, unspecified organism (principal); J45.901 Unspecified asthma with (acute) exacerbation; F17.200 Nicotine dependence, unspecified, uncomplicated; Z86.59 Personal history of other mental and behavioral disorders; Z79.82 Long term (current) use of aspirin; Z20.822 Contact with and (suspected) exposure to COVID-19
CPT/HCPCS: 36415; 94640 ×2; 93005; 85379; 83880; 80053; 83605; 84484; 85025; 85610; 85730; 87636; 71046; 99285; 96374; 96375; 99406; J2930; J2405

== ENCOUNTER 2023-11-28 09:22 | Emergency (ER) | payer OTHER ==
--- NOTE | 2023-11-28 10:00 | ED ---
General Adult HPI - General Chief complaint: Shortness of Breath Stated complaint: SOB, poss Pneumonia Time Seen by Provider: 11/28/23 09:42 Source: patient, RN notes reviewed Mode of arrival: ambulatory Limitations: no limitations - History of Present Illness Initial comments: Patient is a pleasant 43-year-old male present to the emergency department with difficulty breathing. Onset of symptoms was around 4 days ago. Patient does complain of cough with occasional clear sputum. Patient does have dyspnea. Patient does have history of previous asthma. Patient does have history of pneumonia just a couple of weeks ago. No upper respiratory congestion. No chest pain. No calf pain or swelling. - Related Data Home Medications Medication Instructions Recorded Confirmed ARIPiprazole [Abilify] 10 mg PO DAILY 10/20/23 10/20/23 Albuterol Inhaler [Ventolin Hfa 2 puff INHALATION RT-QID PRN 10/20/23 10/20/23 Inhaler] Aspirin EC [Ecotrin] 650 mg PO Q4H PRN 10/20/23 10/20/23 Calcium Phos/D3/Magnesium/Zinc 1 tab PO TID PRN 10/20/23 10/20/23 [Nipfcgn-Pbc-Qqju-Vitamin D3] Cetirizine HCl [Zyrtec] 10 mg PO DAILY PRN 10/20/23 10/20/23 FLUoxetine HCL 40 mg PO DAILY 10/20/23 10/20/23 Thiamine [Vitamin B-1] 100 mg PO DAILY 10/20/23 10/20/23 busPIRone HCL [Buspar] 30 mg PO BID 10/20/23 10/20/23 Previous Rx's Medication Instructions Recorded Amoxic-Pot Clav 875-125Mg 1 tab PO Q12HR 7 Days #14 tab 11/03/23 [Augmentin 875-125] Azithromycin [Zithromax] 250 mg PO DIRECTED 5 Days #6 tab 11/03/23 Ondansetron Odt [Zofran Odt] 4 mg PO Q8HR PRN #10 tab 11/03/23 predniSONE 50 mg PO DAILY 5 Days #5 tab 11/03/23 Albuterol Inhaler [Ventolin Hfa 2 puff INHALATION Q4HR PRN #1 each 11/28/23 Inhaler] Molnupiravir [Lagevrio (Eua)] 4 tab PO BID #40 cap 11/28/23 dexAMETHasone [Decadron] 6 mg PO DAILY #5 tablet 11/28/23 Allergies Allergy/AdvReac Type Severity Reaction Status Date / Time No Known Allergies Allergy Verified 10/20/23 19:32 Review of Systems ROS Statement: Those systems with pertinent positive or pertinent negative responses have been documented in the HPI. ROS Other: All systems not noted in ROS Statement are negative. Constitutional: Denies: fever Eyes: Denies: eye pain ENT: Denies: ear pain Respiratory: Reports: as per HPI, cough, dyspnea Cardiovascular: Denies: chest pain Endocrine: Reports: fatigue Gastrointestinal: Denies: abdominal pain Musculoskeletal: Denies: back pain Past Medical History Past Medical History: Asthma History of Any Multi-Drug Resistant Organisms: None Reported Past Surgical History: No Surgical Hx Reported Past Psychological History: Anxiety, Panic Disorder Smoking Status: Current some day smoker Past Alcohol Use History: Abuse Past Drug Use History: None Reported General Exam Limitations: no limitations General appearance: alert, in no apparent distress Head exam: Present: normocephalic Eye exam: Present: normal appearance Neck exam: Present: normal inspection Respiratory exam: Present: wheezes Cardiovascular Exam: Present: regular rate, normal rhythm GI/Abdominal exam: Present: soft. Absent: tenderness Extremities exam: Present: normal inspection. Absent: pedal edema, calf tenderness Neurological exam: Present: alert Psychiatric exam: Present: normal affect, normal mood Skin exam: Present: normal color Course Vital Signs 11/28/23 11/28/23 11/28/23 09:25 09:38 09:45 Temperature 98.1 F 98.0 F Pulse Rate 84 77 Respiratory 16 17 19 Rate Blood Pressure 116/73 117/88 O2 Sat by Pulse 94 L 96 Oximetry 11/28/23 10:33 Temperature Pulse Rate 80 Respiratory 18 Rate Blood Pressure 113/74 O2 Sat by Pulse 96 Oximetry Medical Decision Making - Medical Decision Making Was pt. sent in by a medical professional or institution (, PA, PERSONAL SHOPPER, urgent care, hospital, or [facility]...) When possible be specific @ -No Did you speak to anyone other than the patient for history (EMS, parent, family, police, friend...)? What history was obtained from this source @ -No Did you review nursing and triage notes (agree or disagree)? Why? @ -I reviewed and agree with nursing and triage notes Were old charts reviewed (outside hosp., previous admission, EMS record, old EKG, old radiological studies, urgent care reports/EKG's, [facility] records)? Report findings @ -Previous chest x-ray reviewed Differential Diagnosis (chest pain, altered mental status, abdominal pain women, abdominal pain men, vaginal bleeding, weakness, fever, dyspnea, syncope, headache, dizziness, GI bleed, back pain, seizure, CVA, palpatations, mental health, musculoskeletal)? @ -Differential Dyspnea: Coronary syndrome, arrhythmia, tamponade, asthma, COPD, pulmonary embolism, pneumonia, pneumothorax, pulmonary effusion, anaphylaxis, diabetic ketoacidosis, flailed chest, pulmonary contusion, diaphragmatic rupture, anemia, neuromuscular, this is not meant to be an all-inclusive list. EKG interpreted by me (3pts min.). @ -As above X-rays interpreted by me (1pt min.). @ -X-ray does not reveal acute abnormality CT interpreted by me (1pt min.). @ -None done U/S interpreted by me (1pt. min.). @ -None done What testing was considered but not performed or refused? (CT, X-rays, U/S, labs)? Why? @ -None What meds were considered but not given or refused? Why? @ -Considered Paxlovid however patient is on contraindicated medication Did you discuss the management of the patient with other professionals (professionals i.e. , PA, PERSONAL SHOPPER, lab, RT, psych nurse, psychiatric social worker, surg physician asst, teacher, preventive medicine officer, case therapist)? Give summary @ -No Was smoking cessation discussed for >3mins.? @ -No Was critical care preformed (if so, how long)? @ -No Were there social determinants of health that impacted care today? How? (Homelessness, low income, unemployed, alcoholism, drug addiction, transportation, low edu. Level, literacy, decrease access to med. care, custodial, rehab)? @ -No Was there de-escalation of care discussed even if they declined (Discuss DNR or withdrawal of care, Hospice)? DNR status @ -No What co-morbidities impacted this encounter? (DM, HTN, Smoking, COPD, CAD, Cancer, CVA, ARF, Chemo, Hep., AIDS, mental health diagnosis, sleep apnea, morbid obesity)? @ -History of asthma Was patient admitted / discharged? Hospital course, mention meds given and route, prescriptions, significant lab abnormalities, going to OR and other pertinent info. @ -Patient reevaluated and resting comfortably in bed. Patient is updated on results and plan. Undiagnosed new problem with uncertain prognosis? @ -No Drug Therapy requiring intensive monitoring for toxicity (Heparin, Nitro, Insulin, Cardizem)? @ -No Were any procedures done? @ -No Diagnosis/symptom? @ -COVID-19 Acute, or Chronic, or Acute on Chronic? @ -Acute Uncomplicated (without systemic symptoms) or Complicated (systemic symptoms)? @ -Default Side effects of treatment? @ -No Exacerbation, Progression, or Severe Exacerbation? @ -No Poses a threat to life or bodily function? How? (Chest pain, [place], [place], pneumonia, PE, COPD, DKA, ARF, appy, cholecystitis, CVA, Diverticulitis, Homicidal, Suicidal, threat to staff... and all critical care pts) @ -No - Lab Data Result diagrams: 11/28/23 10:01 Lab Results 11/28/23 11/28/23 11/28/23 Range/Units 09:32 10:01 10:01 WBC 5.6 (3.8-10.6) k/uL RBC 4.65 (4.30-5.90) m/uL Hgb 15.0 (13.0-17.5) gm/dL Hct 46.6 (39.0-53.0) % MCV 100.1 H (80.0-100.0) fL MCH 32.2 (25.0-35.0) pg MCHC 32.2 (31.0-37.0) g/dL RDW 13.1 (11.5-15.5) % Plt Count 219 (150-450) k/uL MPV 7.8 Neutrophils % 54 % Lymphocytes % 24 % Monocytes % 7 % Eosinophils % 13 % Basophils % 1 % Neutrophils # 3.0 (1.3-7.7) k/uL Lymphocytes # 1.3 (1.0-4.8) k/uL Monocytes # 0.4 (0-1.0) k/uL Eosinophils # 0.7 (0-0.7) k/uL Basophils # 0.1 (0-0.2) k/uL PT 10.4 (10.0-12.5) sec INR 0.9 (<1.2) APTT 23.8 (22.0-30.0) sec D-Dimer 0.30 (<0.60) mg/L FEU Influenza Type A (PCR) Not Detected (Not Detectd) Influenza Type B (PCR) Not Detected (Not Detectd) RSV (PCR) Not Detected (Not Detectd) SARS-CoV-2 (PCR) Detected A (Not Detectd) Disposition Clinical Impression: COVID-19 Disposition: HOME SELF-CARE Condition: Stable Instructions (If sedation given, give patient instructions): Asthma (ED) Additional Instructions: Prescriptions have been sent to pharmacy. Please do follow-up with your primary care physician in the next 1 or 2 days for recheck. Return for difficulty breathing, uncontrolled fevers, worsening or changing symptoms or other concerns. [id number] Tylenol as needed. [id number]-cplosms vitamin C and vitamin D. Prescriptions: dexAMETHasone [Decadron] 6 mg PO DAILY #5 tablet Molnupiravir [Lagevrio (Eua)] 4 tab PO BID #40 cap Albuterol Inhaler [Ventolin Hfa Inhaler] 2 puff INHALATION Q4HR PRN #1 each PRN Reason: Dyspnea Is patient prescribed a controlled substance at d/c from ED?: No Referrals: Delvis Yates MD [STAFF PHYSICIAN] - 1-2 days Time of Disposition: 10:48
[2023-11-28 10:11] LABS: Basophils # (A) 0.1 k/uL (0-0.2); Basophils % (A) 1 %; Eosinophils # (A) 0.7 k/uL (0-0.7); Eosinophils % (A) 13 %; HCT 46.6 % (39.0-53.0); Lymphocytes # (A) 1.3 k/uL (1.0-4.8); Lymphocytes % (A) 24 %; MCH 32.2 pg (25.0-35.0); MCHC 32.2 g/dL (31.0-37.0); MCV 100.1 fL (80.0-100.0); Mean Platelet Volume 7.8; Monocytes # (A) 0.4 k/uL (0-1.0); Monocytes % (A) 7 %; Neutrophils % (A) 54 %; Platelet Count 219 k/uL (150-450); RBC 4.65 m/uL (4.30-5.90); RDW 13.1 % (11.5-15.5); WBC 5.6 k/uL (3.8-10.6)
--- NOTE | 2023-11-28 10:31 | XR ---
EXAMINATION TYPE: XR chest 2V DATE OF EXAM: 11/28/2023 COMPARISON: 11/03/2023 INDICATION: Cough and shortness of breath TECHNIQUE: Frontal and lateral views of the chest are obtained. FINDINGS: The heart size is normal. The pulmonary vasculature is normal. The lungs are clear. IMPRESSION: 1. No acute pulmonary process.
[2023-11-28 10:34] LABS: INR 0.9 (<1.2); Partial Thromboplastin Time 23.8 sec (22.0-30.0); Prothrombin Time 10.4 sec (10.0-12.5)
[2023-11-28] MEDS: methylPREDNISolone SOD SUCCI 125 MG/2 ML VIAL IV STA (10:36)
[2023-11-28 10:44] VITALS: BP 113/74; PULSE 80; RESP 18
[2023-11-28 10:46] LABS: ALT 32 U/L (4-49); AST 35 U/L (17-59); African American GFR (CKD) >90 (>60 ml/min/1.73 sqM); Albumin 3.7 g/dL (3.5-5.0); Alkaline Phosphatase 45 U/L (38-126); Anion Gap 6 mmol/L; Blood Urea Nitrogen 20 mg/dL (9-20); Calcium 8.8 mg/dL (8.4-10.2); Carbon Dioxide 23 mmol/L (22-30); Chloride 111 mmol/L (98-107); Glucose 106 mg/dL (74-99); Non-African American GFR(CKD) >90 (>60 ml/min/1.73 sqM); Sodium 140 mmol/L (137-145); Total Bilirubin 0.7 mg/dL (0.2-1.3); Total Protein 6.4 g/dL (6.3-8.2)
[2023-11-28] MEDS: ALBUTEROL HFA INHALER INHALATION STA (11:02)
[2023-11-28] MEDS: IPRATROPIUM-ALBUTEROL 3 ML NEB INHALATION STA (11:02)
[2023-11-28 11:23] VITALS: TEMP 98.4
== END 2023-11-28 11:04 | disposition home or self-care (01) ==
LOC: EC 09:22
DX: U07.1 COVID-19 (principal); J45.909 Unspecified asthma, uncomplicated; F17.200 Nicotine dependence, unspecified, uncomplicated; Z79.899 Other long term (current) drug therapy
CPT/HCPCS: 99285 ×2; 96374 ×2; 36415; 94640; 85379; 80053; 83735; 85025; 85610; 85730; 87636; 71046; J2930

== ENCOUNTER 2023-12-27 11:37 | Emergency (ER) | payer OTHER ==
[2023-12-27] MEDS: IBUPROFEN 800 MG TAB PO STA (12:26)
--- NOTE | 2023-12-27 12:57 | XR ---
EXAMINATION TYPE: XR chest 2V DATE OF EXAM: 12/27/2023 COMPARISON: -24 INDICATION: Short of breath, cough TECHNIQUE: Frontal and lateral views of the chest are obtained. FINDINGS: The heart size is normal. The pulmonary vasculature is normal. The lungs are clear. IMPRESSION: 1. No acute pulmonary process.
--- NOTE | 2023-12-27 13:28 | ED ---
URI HPI - General Chief Complaint: Upper Respiratory Infection Stated Complaint: Body Aches/Fever Time Seen by Provider: 12/27/23 11:50 Source: patient, RN notes reviewed Mode of arrival: ambulatory Limitations: no limitations - History of Present Illness Initial Comments: This is a 43-year-old male with a past medical history of asthma the emergency department chief complaint of viral-like symptoms over the past 2 days. Patient has complaining of headaches, body aches, rhinorrhea, congestion, productive cough, and mild shortness of breath. States that he did have a low-grade fever yesterday evening. He denies nausea, vomiting, abdominal pain, constipation, diarrhea. Patient states that he has not taken any medications at home to alleviate his symptoms. He denies being tested for any viral infections. Patient states that he has been out of his albuterol and Alvesco inhaler for the past 2 months and has a follow-up appointment with his primary care provider on January 06. - Related Data Home Medications Medication Instructions Recorded Confirmed ARIPiprazole [Abilify] 10 mg PO DAILY 10/20/23 10/20/23 Albuterol Inhaler [Ventolin Hfa 2 puff INHALATION RT-QID PRN 10/20/23 10/20/23 Inhaler] Aspirin EC [Ecotrin] 650 mg PO Q4H PRN 10/20/23 10/20/23 Calcium Phos/D3/Magnesium/Zinc 1 tab PO TID PRN 10/20/23 10/20/23 [Xqbrlbh-Jzl-Rglr-Vitamin D3] Cetirizine HCl [Zyrtec] 10 mg PO DAILY PRN 10/20/23 10/20/23 FLUoxetine HCL 40 mg PO DAILY 10/20/23 10/20/23 Thiamine [Vitamin B-1] 100 mg PO DAILY 10/20/23 10/20/23 busPIRone HCL [Buspar] 30 mg PO BID 10/20/23 10/20/23 Previous Rx's Medication Instructions Recorded Amoxic-Pot Clav 875-125Mg 1 tab PO Q12HR 7 Days #14 tab 11/03/23 [Augmentin 875-125] Azithromycin [Zithromax] 250 mg PO DIRECTED 5 Days #6 tab 11/03/23 Ondansetron Odt [Zofran Odt] 4 mg PO Q8HR PRN #10 tab 11/03/23 predniSONE 50 mg PO DAILY 5 Days #5 tab 11/03/23 Albuterol Inhaler [Ventolin Hfa 2 puff INHALATION Q4HR PRN #1 each 11/28/23 Inhaler] Molnupiravir [Lagevrio (Eua)] 4 tab PO BID #40 cap 11/28/23 dexAMETHasone [Decadron] 6 mg PO DAILY #5 tablet 11/28/23 Albuterol Inhaler [Ventolin Hfa 1 - 2 puff INHALATION Q6H PRN #1 12/27/23 Inhaler] each Ciclesonide [Alvesco] 1 puff INHALATION BID #6.1 gm 12/27/23 predniSONE 50 mg PO DAILY #5 tab 12/27/23 Allergies Allergy/AdvReac Type Severity Reaction Status Date / Time No Known Allergies Allergy Verified 12/27/23 11:41 Review of Systems ROS Statement: Those systems with pertinent positive or pertinent negative responses have been documented in the HPI. ROS Other: All systems not noted in ROS Statement are negative. Past Medical History Past Medical History: Asthma History of Any Multi-Drug Resistant Organisms: None Reported Past Surgical History: No Surgical Hx Reported Past Psychological History: Anxiety, Panic Disorder Smoking Status: Current some day smoker Past Alcohol Use History: Abuse Past Drug Use History: None Reported General Exam Limitations: no limitations General appearance: alert, in no apparent distress Head exam: Present: atraumatic, normocephalic, normal inspection Eye exam: Present: normal appearance, PERRL, EOMI. Absent: scleral icterus, conjunctival injection, periorbital swelling ENT exam: Present: normal exam, mucous membranes moist Expanded Throat exam: normal inspection, tonsillar erythema, tonsillomegaly (1+). negative: tonsillar exudate, R peritonsillar mass, L peritonsillar mass Neck exam: Present: normal inspection. Absent: tenderness, meningismus, lymphadenopathy Respiratory exam: Present: wheezes. Absent: normal lung sounds bilaterally, respiratory distress, rhonchi, stridor, chest wall tenderness, accessory muscle use, decreased breath sounds Cardiovascular Exam: Present: regular rate, normal rhythm, normal heart sounds. Absent: systolic murmur, diastolic murmur, rubs, gallop, clicks GI/Abdominal exam: Present: soft, normal bowel sounds. Absent: distended, tenderness, guarding, rebound, rigid Extremities exam: Present: normal inspection, full ROM, normal capillary refill. Absent: tenderness, pedal edema, joint swelling, calf tenderness Back exam: Present: normal inspection Neurological exam: Present: alert, oriented X3, CN II-XII intact Psychiatric exam: Present: normal affect, normal mood Skin exam: Present: warm, dry, intact, normal color. Absent: rash Course Vital Signs 12/27/23 12/27/23 11:38 14:00 Temperature 98.2 F 99.0 F Pulse Rate 84 73 Respiratory 18 20 Rate Blood Pressure 117/81 108/71 O2 Sat by Pulse 97 94 L Oximetry Medical Decision Making - Medical Decision Making Was pt. sent in by a medical professional or institution (, PA, [facility], urgent care, hospital, or [facility]...) When possible be specific @ -No Did you speak to anyone other than the patient for history (EMS, parent, family, police, friend...)? What history was obtained from this source @ -No Did you review nursing and triage notes (agree or disagree)? Why? @ -I reviewed and agree with nursing and triage notes Were old charts reviewed (outside hosp., previous admission, EMS record, old EKG, old radiological studies, urgent care reports/EKG's, [facility] records)? Report findings @ -No old charts were reviewed Differential Diagnosis (chest pain, altered mental status, abdominal pain women, abdominal pain men, vaginal bleeding, weakness, fever, dyspnea, syncope, headache, dizziness, GI bleed, back pain, seizure, CVA, palpatations, mental health, musculoskeletal)? @ -COVID 19, RSV, influenza, pneumonia, acute bronchitis, URI, acute asthma exacerbation, this list is not all inclusive EKG interpreted by me (3pts min.). @ -None X-rays interpreted by me (1pt min.). @ -chest X-ray no acute cardiopulmonary process CT interpreted by me (1pt min.). @ -None done U/S interpreted by me (1pt. min.). @ -None done What testing was considered but not performed or refused? (CT, X-rays, U/S, labs)? Why? @ -None What meds were considered but not given or refused? Why? @ -None Did you discuss the management of the patient with other professionals (professionals i.e. , PA, [facility] [employer], lab, RT, psych nurse, hospice social worker, sagger preparer, teacher, systems support officer, machine adjuster leader case trim)? Give summary @ -No Was smoking cessation discussed for >3mins.? @ -No Was critical care preformed (if so, how long)? @ -No Were there social determinants of health that impacted care today? How? (Homelessness, low income, unemployed, alcoholism, drug addiction, transportation, low edu. Level, literacy, decrease access to med. care, [facility], rehab)? @ -No Was there de-escalation of care discussed even if they declined (Discuss DNR or withdrawal of care, Hospice)? DNR status @ -No What co-morbidities impacted this encounter? (DM, HTN, Smoking, COPD, CAD, Cancer, CVA, ARF, Chemo, Hep., AIDS, mental health diagnosis, sleep apnea, morbid obesity)? @ -None Was patient admitted / discharged? Hospital course, mention meds given and route, prescriptions, significant lab abnormalities, going to OR and other pertinent info. @ -Discharge. 3-year-old male with complaint of viral symptoms. On examination patient noted to have mild scattered wheezes. Patient also noted to have mild erythema of the posterior oropharynx and 1+ tonsillomegaly. There is no noted respiratory distress, patient's vitals he is nonhypoxic. Viral panel negative for COVID, flu RSV. Chest x-ray unremarkable. At this time patient will be prescribed short course of steroids due to auscultatory findings of wheezing in addition to the refill on his inhalers. Recommend that patient keeps his appoint with his primary care provider within the next week for further evaluation. Recommend continue to cycle Tylenol Motrin as needed. Case discussed with Dr. Lou. Discussed strict return parameters. Undiagnosed new problem with uncertain prognosis? @ -No Drug Therapy requiring intensive monitoring for toxicity (Heparin, Nitro, Insulin, Cardizem)? @ -No Were any procedures done? @ -No Diagnosis/symptom? @ -viral infection, asthma exacerabtion, cough Acute, or Chronic, or Acute on Chronic? @ -[acute plicated (without systemic symptoms) or Complicated (systemic symptoms)? @ -Default Side effects of treatment? @ -No Exacerbation, Progression, or Severe Exacerbation? @ -No Poses a threat to life or bodily function? How? (Chest pain, [place], [place], pneumonia, PE, COPD, DKA, ARF, appy, cholecystitis, CVA, Diverticulitis, Homicidal, Suicidal, threat to staff... and all critical care pts) @ -No - Lab Data Lab Results 12/27/23 Range/Units 11:45 Influenza Type A (PCR) Not Detected (Not Detectd) Influenza Type B (PCR) Not Detected (Not Detectd) RSV (PCR) Not Detected (Not Detectd) SARS-CoV-2 (PCR) Not Detected (Not Detectd) Disposition Clinical Impression: Viral infection, Cough, Wheezing on auscultation Narrative: Please return to the Emergency Department if symptoms worsen or any other concerns. Disposition: HOME SELF-CARE Condition: Good Instructions (If sedation given, give patient instructions): Upper Respiratory Infection (ED) Prescriptions: Ciclesonide [Alvesco] 1 puff INHALATION BID #6.1 gm predniSONE 50 mg PO DAILY #5 tab Albuterol Inhaler [Ventolin Hfa Inhaler] 1 - 2 puff INHALATION Q6H PRN #1 each PRN Reason: Shortness Of Breath Is patient prescribed a controlled substance at d/c from ED?: No Referrals: None,Stated [Primary Care Provider] - 1-2 days Time of Disposition: 13:28
[2023-12-27] MEDS: methylPREDNISolone SOD SUCCI 125 MG/2 ML VIAL IM ONE (13:55)
[2023-12-27 14:18] VITALS: BP 108/71; PULSE 73; RESP 20; TEMP 99
== END 2023-12-27 14:03 | disposition home or self-care (01) ==
LOC: EC 11:37
DX: B34.9 Viral infection, unspecified (principal); R06.2 Wheezing; F17.200 Nicotine dependence, unspecified, uncomplicated
CPT/HCPCS: 87636; 71046; 99283; 96372; J2919